=== PATIENT | male | born 1995 | race Caucasian/White ===

== ENCOUNTER 2016-05-07 15:29 | Emergency (ER) | payer MEDICAID ==
[~2016-05-07] VITALS: Ht 177.8 cm; Wt 69.0 kg
[~2016-05-07 15:29] MED LIST: FLUO-191 PO; OLAN5Z PO
[2016-05-07] MEDS ORDERED: HYDROCODONE/ACETAMINOPHEN 5-325 MG TABLET PO ONE (17:00)
[2016-05-07 18:03] VITALS: BP 136/71
== END 2016-05-07 18:06 | disposition home or self-care (01) ==
LOC: EMS 15:31
DX: S52.501A Unspecified fracture of the lower end of right radius, initial encounter for closed fracture (principal); F12.90 Cannabis use, unspecified, uncomplicated; F17.210 Nicotine dependence, cigarettes, uncomplicated; W19.XXXA Unspecified fall, initial encounter; Y93.51 Activity, roller skating (inline) and skateboarding; Y92.89 Other specified places as the place of occurrence of the external cause; Y99.8 Other external cause status
CPT/HCPCS: 99284